=== PATIENT | female | born 1995 | race African-American/Black ===

== ENCOUNTER 2023-11-22 12:42 | Emergency (ER) | payer OTHER ==
[2023-11-22 12:47] VITALS: BP 123/63; PULSE 86; RESP 18; TEMP 98.3; BMI 24.7
== END 2023-11-22 15:19 | disposition home or self-care (01) ==
LOC: JERFT 12:42 → JER 12:42 → JERFT 15:19
DX: N89.8 Other specified noninflammatory disorders of vagina (principal); B37.31 Acute candidiasis of vulva and vagina
CPT/HCPCS: 99283-25